=== PATIENT | female | born 1990 | race African-American/Black ===

== ENCOUNTER 2023-10-01 05:02 | Emergency (ER) | payer SELFPAY ==
[~2023-10-01] VITALS: Ht 165.1 cm; Wt 66.0 kg
[2023-10-01 05:08] VITALS: O2SAT 98
[2023-10-01 08:00] VITALS: BP 128/64; PULSE 80; RESP 18; TEMP 98.6
== END 2023-10-01 08:15 | disposition home or self-care (01) ==
LOC: ER 05:02
DX: S09.90XA Unspecified injury of head, initial encounter (principal); R07.81 Pleurodynia; H43.392 Other vitreous opacities, left eye; M79.641 Pain in right hand; X58.XXXA Exposure to other specified factors, initial encounter; Y93.89 Activity, other specified; Y92.89 Other specified places as the place of occurrence of the external cause; Y99.8 Other external cause status
CPT/HCPCS: 71045; 73130; 70450; 99284; Z7610